=== PATIENT | female | born 1965 | race Caucasian/White ===

== ENCOUNTER 2021-09-21 09:10 | Day surgery (SDC) | payer OTHER, BC ==
[2021-09-19 10:58] VITALS: BMI 32.5
[2021-09-21] MEDS ORDERED: CYCLOPENTOLATE 2% OPHTH SOLN 2 ML BOTTLE ONE (09:31)
[2021-09-21] MEDS ORDERED: TROPICAMIDE 1% OPHTH SOLN 15 ML BOTTLE ONE (09:31)
[2021-09-21] MEDS ORDERED: PHENYLEPHRINE 2.5% OPHTH SOLN 15 ML BOTTLE ONE (09:31)
[2021-09-21] MEDS ORDERED: CIPROFLOXACIN 0.3% EYE DROPS 5 ML BOTTLE ONE (09:31)
[2021-09-21] MEDS ORDERED: PHENYLEPHRINE 2.5% OPHTH SOLN 15 ML BOTTLE OD ONE ×3 (09:40→09:50)
[2021-09-21] MEDS ORDERED: TROPICAMIDE 1% OPHTH SOLN 15 ML BOTTLE OD ONE ×3 (09:40→09:50)
[2021-09-21] MEDS ORDERED: CIPROFLOXACIN 0.3% EYE DROPS 5 ML BOTTLE OD ONE ×3 (09:40→09:50)
[2021-09-21] MEDS ORDERED: CYCLOPENTOLATE 2% OPHTH SOLN 2 ML BOTTLE OD ONE ×3 (09:40→09:50)
[2021-09-21] MEDS ORDERED: NEO/POLYMYX B SULF/DEXAMETH OPHTHALMIC 5ML BOTTLE ONE (10:40)
[2021-09-21] MEDS ORDERED: CARBACHOL 0.01% INTRA-OCULAR 1.5 ML VIAL ONE (10:40)
[2021-09-21] MEDS ORDERED: BSS (NA/CA/MG/K) BALANCED SALT SOLUTION OPHTH SOLN 15 ML BOTTLE ONE (10:40)
[2021-09-21] MEDS ORDERED: LIDOCAINE 1% P/F 10 MG/ML VIAL ONE (10:40)
[2021-09-21] MEDS ORDERED: MIDAZOLAM HCL 2 MG/2 ML SINGLE DOSE VIAL ONE (11:18)
[2021-09-21 12:46] VITALS: TEMP 97.9
[2021-09-21 12:57] VITALS: BP 130/80; PULSE 80
== END 2021-09-21 12:30 | disposition home or self-care (01) ==
LOC: FASU 09:10
PROVIDERS: ATTEND Ophthalmology
PROC: 08RJ3JZ Replacement of Right Lens with Synthetic Substitute, Percutaneous Approach (ICD-10-PCS; principal; 2021-09-21 11:26)
DX: H26.8 Other specified cataract (principal)
CPT/HCPCS: 66984; V2632